=== PATIENT | male | born 1965 | race Caucasian/White ===

== ENCOUNTER 2017-10-29 23:55 | Emergency (ER) | payer OTHER ==
[2017-10-30 01:58] LABS: URINE PH (Dip) POC 6.5 (5.0-8.5)
[2017-10-30 01:58] LABS: URINE BLOOD (Dip) POC Negative (NEGATIVE); URINE GLUCOSE (Dip) POC Negative (NEGATIVE); URINE KETONES (Dip) POC Negative (NEGATIVE); URINE LEUKOCYTE EST (Dip) POC Negative (NEGATIVE); URINE NITRITE (Dip) POC Negative (NEGATIVE); URINE TOTAL PROTEIN POC Negative (NEGATIVE)
== END 2017-10-30 02:18 | disposition home or self-care (01) ==
LOC: FTE 23:55
DX: N48.89 Other specified disorders of penis (principal); J45.909 Unspecified asthma, uncomplicated
CPT/HCPCS: 81003; 99283